=== PATIENT | female | born 1980 | race Caucasian/White ===

== ENCOUNTER → 2016-10-23 | Outpatient (REF) | payer OTHER | LOC: M LAB REF 19:37 | PROVIDERS: ATTEND Physician Assistant | DX: J02.9 Acute pharyngitis, unspecified (principal) ==

== ENCOUNTER → 2017-03-23 | Outpatient (REF) | payer OTHER | LOC: M LAB REF 16:12 | PROVIDERS: ATTEND Physician Assistant | DX: J02.9 Acute pharyngitis, unspecified (principal) ==

== ENCOUNTER → 2017-04-10 | Outpatient (REF) | payer OTHER | LOC: M SFHCWAGY 15:50 | PROVIDERS: ATTEND Family Medicine | DX: Z12.4 Encounter for screening for malignant neoplasm of cervix (principal) ==

== ENCOUNTER → 2019-03-16 | Outpatient (REF) | payer OTHER ==
[2019-03-16 18:18] LABS: HEMATOCRIT 40.1 % (36.0-47.0); HEMOGLOBIN 12.3 g/dl (12.0-15.5); MEAN CORPUSCULAR HEMOGLOBIN 23.7 pg (27.0-33.0); MEAN CORPUSCULAR HGB CONC 30.7 g/dl (32.0-36.5); MEAN CORPUSCULAR VOLUME 77.1 fl (80.0-96.0); PLATELET COUNT, AUTOMATED 290 10^3/uL (150-450); WHITE BLOOD COUNT 9.8 10^3/uL (4.0-10.0)
[2019-03-16 18:52] LABS: ALBUMIN 3.6 GM/DL (3.2-5.2); ALT/SGPT 18 U/L (12-78); BILIRUBIN,TOTAL 0.6 MG/DL (0.2-1.0); BLOOD UREA NITROGEN 12 MG/DL (7-18); CALCIUM LEVEL 8.8 MG/DL (8.5-10.1); CARBON DIOXIDE LEVEL 28 MEQ/L (21-32); CHLORIDE LEVEL 103 MEQ/L (98-107); CHOLESTEROL LEVEL 220 MG/DL (<200); CHOLESTEROL RISK RATIO 5.789 (<5); CREATININE FOR GFR 0.85 MG/DL (0.55-1.30); FREE T4 0.99 NG/DL (0.76-1.46); GLOMERULAR FILTRATION RATE > 60.0 (>60); GLUCOSE, FASTING 92 MG/DL (70-100); HDL CHOLESTEROL 38 MG/DL (>40); LDL CHOLESTEROL 145 MG/DL (<100); NON-HDL-C 182 MG/DL; POTASSIUM SERUM 3.9 MEQ/L (3.5-5.1); SODIUM LEVEL 137 MEQ/L (136-145); THYROID STIMULATING HORMONE 0.733 uIU/ML (0.358-3.740); TOTAL PROTEIN 7.1 GM/DL (6.4-8.2); TRIGLYCERIDES LEVEL 187 MG/DL (<150)
== END ==
LOC: M SFHCWAGY 14:57
PROVIDERS: ATTEND Nurse Practitioner Women's Health
DX: Z00.00 Encounter for general adult medical examination without abnormal findings (principal); N94.6 Dysmenorrhea, unspecified; N92.0 Excessive and frequent menstruation with regular cycle

== ENCOUNTER → 2019-03-23 | Outpatient (CLI) | payer OTHER ==
--- NOTE | 2019-03-24 04:13 | REP ---
Clinical: Abnormal menstrual cycles. Menorrhagia. Technique: Transabdominal pelvic ultrasound followed by transvaginal examination for better evaluation of the endometrium and adnexa with color Doppler evaluation of the ovaries. Findings: Bladder is under distended and currently measures 5.7 x 5.1 x 3.8 cm. Heterogeneous anteverted uterus measures 8.1 x 4.9 x 5.9 cm with a anterior intramural fibroid measuring 2.1 cm maximal diameter and fundal fibroid measuring 5.6 cm maximal diameter with internal echogenicity suggesting calcification. Endometrial complex measures 7 mm thickness. Ovaries are normal in vascularity without torsion. Right ovary measures 4.6 x 3.6 x 4.3 cm (RI 0.64) including hypoechoic and isoechoic structures measuring 2.5 cm and 2.9 cm suggesting complex cysts and possible endometrioma. Left ovary measures 3.9 x 2.0 x 3.6 cm (RI 0.34) and includes 1.9 cm complex cyst / follicle. No pelvic free fluid or discrete adnexal mass lesion. Impression: 1. Heterogeneous anteverted uterus with at least two fibroids as noted above. 2. Complex structures within the bilateral ovaries (right greater than left) likely representing complex physiologic cysts/follicles with possible endometrioma in the right ovary. Consider follow-up examination in 4-6 weeks to evaluate for resolution. Electronically Signed by Adam Storm MD 03/24/2019 04:05 A
== END ==
LOC: M RAD 08:30
PROVIDERS: ATTEND Nurse Practitioner Women's Health
DX: N94.6 Dysmenorrhea, unspecified (principal); N92.0 Excessive and frequent menstruation with regular cycle

== ENCOUNTER → 2020-07-17 | Outpatient (REF) | payer BC | LOC: M SFHCWAGY 09:17 | PROVIDERS: ATTEND Nurse Practitioner Women's Health | DX: Z12.4 Encounter for screening for malignant neoplasm of cervix (principal) | CPT/HCPCS: 87624; G0123 ==

== ENCOUNTER → 2020-08-01 | Outpatient (CLI) | payer BC ==
--- NOTE | 2020-08-01 17:55 | REP ---
INDICATION: D25.9 UTERINE LEIOMYOMA,Z87.42 HX OVARIAN CA,N93.9 AUB. COMPARISON: 03/23/2019. TECHNIQUE: Transabdominal and transvaginal scanning performed. FINDINGS: Uterine dimensions are 8.8 x 5.9 x 5.9 cm. Endometrial echo is 10 mm in AP dimension and centrally placed. Anterior fibroid measures 1.9 x 1.8 x 2.3 cm. A pedunculated fundal fibroid measures 4.9 x 4.1 x 3.9 cm. Both of these are similar in size compared to the prior study. The bladder measures 5.9 x 2.9cm. The right ovary has dimensions of 5.2 x 4.3 x 4.4 cm. The left ovary dimensions are 3.9 x 2.3 x 2.7 cm. Blood flow is seen in each ovary with duplex Doppler evaluation, with no torsion. A complex right ovarian cyst demonstrates diffuse internal echoes and somewhat nodular appearing thickened septations. This measures 3.8 x 3.8 x 3.5 cm. Another cystic structures seen in the right ovary with low level echoes 1.7 x 1.0 x 1.3 cm. There is a somewhat exophytic peripheral hypoechoic nodular structure of the left ovary 2.4 x 2.1 x 2.2 cm. This could represent a complex cyst or dominant follicle. No free fluid is seen in the cul-de-sac. IMPRESSION: Stable uterine fibroids. Complex right ovarian cyst contains internal echoes and somewhat suspicious internal nodular appearing thickened septations with maximum diameter 3.8 cm. Blood flow is seen within these nodular appearing septations. Consider surgical resection. At the very least further evaluation should be made with MRI pelvis with and without contrast or follow-up ultrasound in 6-12 weeks. <Electronically signed by Shane Castro > 08/01/20 [id number]
== END ==
LOC: M WHC 14:58
PROVIDERS: ATTEND Nurse Practitioner Women's Health
DX: N83.291 Other ovarian cyst, right side (principal); Z87.42 Personal history of other diseases of the female genital tract; D25.9 Leiomyoma of uterus, unspecified; N93.9 Abnormal uterine and vaginal bleeding, unspecified

== ENCOUNTER → 2020-08-16 | Outpatient (REF) | payer BC | LOC: M PLALAB 17:58 | PROVIDERS: ATTEND Obstetrics & Gynecology | DX: N83.209 Unspecified ovarian cyst, unspecified side (principal); Z53.8 Procedure and treatment not carried out for other reasons ==

== ENCOUNTER → 2020-08-17 | Outpatient (REF) | payer BC ==
[2020-08-17 18:34] LABS: HCG, SERUM QUANTITATIVE < 1.0 MIU/ML
[2020-08-17 19:10] LABS: CA 125 35.2 U/ML (<30.2)
[2020-08-21 16:17] LABS: HE4 49.3 pmol/L (0.0-63.6); INHIBIN A ULTRASENSITIVE 12.6 pg/mL (.); INHIBIN B 16.3 pg/mL (.)
== END ==
LOC: M PLALAB 14:42
PROVIDERS: ATTEND Obstetrics & Gynecology
DX: N83.209 Unspecified ovarian cyst, unspecified side (principal)

== ENCOUNTER → 2020-09-01 | Outpatient (CLI) | payer BC ==
[~2020-09-01] MED LIST: CITA20TA6 PO; METO1TAB33 PO
== END ==
LOC: M LABSMTC 08:16
PROVIDERS: ATTEND Anesthesiology
DX: Z01.812 Encounter for preprocedural laboratory examination (principal); Z11.52 Encounter for screening for COVID-19

== ENCOUNTER 2020-09-06 08:04 | Day surgery (SDC) | payer BC ==
[~2020-09-06] VITALS: Ht 157.5 cm; Wt 110.2 kg
[~2020-09-06 08:04] MED LIST changes: +CLINDAMYCIN 900 MG in IV 1 EA IV ONE; +GENTAMICIN 160 MG in D5W 50 ML IV ONE; +LIDOCAINE 1% MDV 20ML VIAL SQ PRN; +LIDOCAINE 2% INJ 100 MG/5 ML SYRINGE As Ordered ONE; +LR 1,000 ML IV ONE; +MIDAZOLAM INJ 2MG/2ML VIAL (J2250 PER 1MG) As Ordered ONE; +ROCURONIUM BROMIDE 50 MG/5 ML VIAL As Ordered ONE; +dexameTHASONE 4 MG/ML 1ML VIAL (J1100 PER 1MG) As Ordered ONE; +fentaNYL 250 MCG/5 ML INJECTION (J3010) As Ordered ONE; +propofoL 200 MG/20 ML VIAL As Ordered ONE
[2020-09-06 08:49] LABS: HEMATOCRIT 40.3 % (36.0-47.0); HEMOGLOBIN 12.4 g/dl (12.0-15.5); MEAN CORPUSCULAR HEMOGLOBIN 23.5 pg (27.0-33.0); MEAN CORPUSCULAR HGB CONC 30.8 g/dl (32.0-36.5); MEAN CORPUSCULAR VOLUME 76.3 fl (80.0-96.0); PLATELET COUNT, AUTOMATED 308 10^3/uL (150-450); RED BLOOD COUNT 5.28 10^6/uL (4.00-5.40); WHITE BLOOD COUNT 8.2 10^3/uL (4.0-10.0)
[2020-09-06 09:14] LABS: HCG, SERUM QUALITATIVE NEGATIVE (NEGATIVE)
[2020-09-06] MEDS ORDERED: LR 1,000 ML IV SCH ×2 (10:20→13:30)
[2020-09-06] MEDS ORDERED: PERCOCET 5MG/325MG TAB PO PRN ×2 (10:20)
[2020-09-06] MEDS ORDERED: ONDANSETRON 4MG/2ML VIAL IV PRN ×2 (10:20→13:30)
[2020-09-06] MEDS ORDERED: BUPIVACAINE HCL 0.25% 30ML VIAL As Ordered ONE (10:39)
[2020-09-06] MEDS ORDERED: ROCURONIUM BROMIDE 50 MG/5 ML VIAL As Ordered ONE (11:01)
[2020-09-06] MEDS ORDERED: ACETAMINOPHEN 1000MG 100ML IV BTL (OFIRMEV) (J0131 PER 10MG) As Ordered ONE (11:36)
[2020-09-06] MEDS ORDERED: SUGAMMADEX SODIUM 500 MG/5 ML VIAL (BRIDION) As Ordered ONE (11:52)
[2020-09-06] MEDS ORDERED: fentaNYL 100 MCG/2 ML INJECTION (J3010) IV PRN (13:30)
[2020-09-06] MEDS ORDERED: oxyCODONE 5MG TAB PO PRN (13:30)
[2020-09-06] MEDS ORDERED: DOK1CAP7 PO (13:35)
[2020-09-06] MEDS ORDERED: PERCOCET PO (13:35)
[2020-09-06] MEDS ORDERED: IBUP80TA PO (13:35)
[2020-09-06 14:30] VITALS: BP 116/56
--- NOTE | 2020-09-06 16:22 | RO ---
OPERATIVE NOTE DATE OF OPERATION: 09/06/2020 STAFF SURGEON: Kathrine Winslow M.D. CAN OPERATOR: Samy Krause MD CLINICAL SERVICE: Gynecology. INDICATIONS FOR PROCEDURE: Yolande is a 40-year-old G0 who presented for abnormal uterine bleeding and was found to have a complex right ovarian cyst on imaging. She also had a fibroid uterus. In our discussions regarding management, she noted that she had undesired fertility. She had never had any children, but she and her were in accord that they did not want to have children in the future. We discussed all options for management of her bleeding, as well as the right ovarian cyst and after discussing all options, she desired hysterectomy for definitive management, as well as right ovarian excision versus right ovary cystectomy. Endometrial sampling had been attempted in the office but unsuccessful related to cervical stenosis. However, endometrial lining was fairly normal on the ultrasound. PREOPERATIVE DIAGNOSES: 1. Abnormal uterine bleeding-leiomyoma. 2. Complex right ovarian cyst. 3. Undesired fertility. 4. Obesity. 5. Hypertension. POSTOPERATIVE DIAGNOSES: 1. Abnormal uterine bleeding-leiomyoma. 2. Complex right ovarian cyst. 3. Undesired fertility. 4. Obesity. 5. Hypertension. 6. Endometriosis involving bilateral ovaries 7. Cervical polyp. PROCEDURES PERFORMED: 1. Cervical polypectomy. 2. Laparoscopic myomectomy. 3. Laparoscopic bilateral salpingectomy 4. Dilation and curettage (D&C). FINDINGS: Laparoscopic findings revealed normal appearing fallopian tubes, normal appearing appendix, gallbladder, and liver edge. The bilateral ovaries were fixed with adhesions in the pelvis and the uterus had a very large pedunculated fibroid at the fundus. It also had what appears to be a cervical fibroid and a few other small fibroids on the anterior aspect. There was a cervical polyp as well. INFECTION CLASSIFICATION: 2. ESTIMATED BLOOD LOSS: 50 mL. IV FLUIDS: 2000 mL of lactated ringers. URINE OUTPUT: 200 mL of clear yellow urine via Boudreaux catheter that was removed at the end of the case. ANESTHESIA: General endotracheal. DESCRIPTION OF PROCEDURE: The patient was taken to the operating room after obtaining informed consent. General endotracheal anesthesia was established. She was placed in the low lithotomy position. She was prepped and draped in the usual sterile fashion. A Boudreaux catheter was placed. [place] speculum was placed in the vagina and visualization of the cervix was obtained. The anterior lip of the cervix was grasped with a single-tooth tenaculum. A fairly large cervical polyp was removed using a long Marie twisting it along the stalk and that was sent off to pathology. At that point, the cervix was sequentially dilated using Augusto dilators. A Riptide IOare uterine manipulator was placed through the cervix into the uterus. Tenaculum was removed with hemostasis observed and bivalve speculum was removed. The patient was taken out of Trendelenburg position and a 5 mm incision was made in the infraumbilical fold beneath the subcutaneous tissue after anesthetizing with 0.25% Marcaine. Marie clamp was used to spread the subcutaneous tissue. Lower abdominal wall was manually grabbed and lifted up with the aide of towel clamps. Optiview trocar was placed at a 90-degree angle. The laparoscope was advanced through the port and intraabdominal placement was confirmed, without injury noted below the point of entry. Continuous flow carbon dioxide began to establish a pneumoperitoneum at 15 mmHg pressure. Two more incisions were made 5 mm in size for 5 mm trocars that were placed under direct visualization; one in the right lower quadrant and one in the left lower quadrant. Pelvic and abdominal survey was conducted beginning at the anterior cul-de-sac and anterior portion of the uterus, which noted the cervical-appearing fibroid anteriorly. The right and left fallopian tubes were normal in appearance, as well as the round ligaments and broad ligaments; but bilaterally, the ovaries were thickly adhesed in the pelvis, consistent with endometriosis. There was no obvious cyst on the anterior portion of the right ovary; so any cyst would be deeper in the stroma or on the other side of the ovary that was adhesed to the pelvic wall. Posterior cul-de-sac was overall normal in appearance. Survey of the upper abdomen revealed a normal appearing appendix, normal appearing liver edge and gallbladder. There was a very large fibroid on the fundal aspect of the uterus pedunculated in nature and there were a couple other scattered 1 cm sized fibroids on the surface of the uterus as well. At that point, given our inspection of the pelvis, given the overall normal appearance of bilateral ovaries other than the fact that they were thickly adhesed in the pelvis overlying the ureters and adjacent to the uterus (snug up against it), which would have made dissection of the uterine vessels difficult in a hysterectomy; Dr. Krause and I conferred and decided the best route to take would be removing the large pedunculated fibroid and that, hopefully in conjunction with removal of the cervical polyp, would help treat her menorrhagia. We also determined to do a D&C, which was done at the end of the case. We felt it was in the best interest of the patient to forgo the hysterectomy at the time of this surgery with plan to vocational rehabilitation counselor the patient further if she strongly desired definitive management of her bleeding in the future to perform a robotic hysterectomy with thorough specific counseling regarding possibility of injury to the ureters needing stenting, etc. We then proceeded with the myomectomy using a LigaSure device, coagulating and cutting the fibroid at the point at which it met the uterus along the pedicle, and we removed that to the side and used cautery at a few small areas of bleeding. We also placed Marcos along the pedicle line from the stalk of the fibroid on the uterus and noted hemostasis there. We then used the LigaSure device to remove the fallopian tubes and excised them from the fimbriated portion all the way to the portion that met the uterus and put those off to the side in the pelvis. Finally, we then made the 5 mm port in the infraumbilical fold into a 10 mm port so that we could then introduce an Endo Catch bag into the pelvis, removed the fallopian tubes, placed the fibroid into the Endo Catch bag, and pulled that up through the subcutaneous layers to the surface. At that point, we proceeded to core the fibroid little by little, keeping it contained within the Endo Catch bag the entire time. Eventually, all of it was removed up out of the abdomen. At that point, we then closed the fascia of the 10 mm port, which we had incised further along the fascia so that we could remove the fibroid up and out of it. Since we had extended that incision, we made sure to do a strong closure using 0-Vicryl suture in a running stitch; making sure that there were no defects left afterwards. Then, we reintroduced the camera into the abdomen and investigated further to ensure that there was no bleeding on the uterus itself where the fibroid had been removed from. We did some irrigation and suctioning. Since there was hemostasis, we then terminated that portion of the procedure. All instruments were removed out of the abdomen, as well as the trocars after releasing the pneumoperitoneum. The incisions were reapproximated with 4-0 Monocryl and Dermabond. At this point, attention was turned to the vagina and Dr. Krause removed the VCare uterine manipulator and replaced the speculum and tenaculum, and performed a D&C to ensure tissue diagnosis of the endometrium. Once that was finished, he removed the tenaculum with hemostasis noted and removed the speculum. Sponge, lap, and needle counts were all correct x2. The patient tolerated the procedure well. She was awakened from general anesthesia and was taken to the recovery room in stable condition. ANNA MARIE
[2020-09-06] MEDS ORDERED: KETOROLAC 30 MG/ML 1ML VIAL IV SCH (19:00)
[2020-09-06] MEDS ORDERED: DOCUSATE SODIUM 100MG CAPSULE PO SCH (21:00)
[2020-09-07] MEDS ORDERED: IBUPROFEN 800 MG TAB PO SCH (15:00)
== END 2020-09-06 15:40 | disposition home or self-care (01) ==
LOC: M SDC 08:04
PROVIDERS: ATTEND Obstetrics & Gynecology
DX: N84.1 Polyp of cervix uteri (principal); N85.00 Endometrial hyperplasia, unspecified; N83.201 Unspecified ovarian cyst, right side; D25.9 Leiomyoma of uterus, unspecified; Z30.2 Encounter for sterilization; E66.9 Obesity, unspecified; I10 Essential (primary) hypertension; F41.9 Anxiety disorder, unspecified; R06.83 Snoring; Z79.899 Other long term (current) drug therapy; F17.210 Nicotine dependence, cigarettes, uncomplicated; Z88.0 Allergy status to penicillin
CPT/HCPCS: 36415; 58120; 58545; 58661; 84703; 85027; 86850; 86900; 86901; 88302; 88305; J0131; J1100; J1580; J2250; J3010

== ENCOUNTER → 2020-09-19 | Outpatient (CLI) | payer BC ==
[~2020-09-19] MED LIST changes: -CLINDAMYCIN 900 MG in IV 1 EA IV ONE; +DOK1CAP7 PO; -GENTAMICIN 160 MG in D5W 50 ML IV ONE; +IBUP80TA PO; -LIDOCAINE 1% MDV 20ML VIAL SQ PRN; -LIDOCAINE 2% INJ 100 MG/5 ML SYRINGE As Ordered ONE; -LR 1,000 ML IV ONE; -MIDAZOLAM INJ 2MG/2ML VIAL (J2250 PER 1MG) As Ordered ONE; +PERCOCET PO; -ROCURONIUM BROMIDE 50 MG/5 ML VIAL As Ordered ONE; -dexameTHASONE 4 MG/ML 1ML VIAL (J1100 PER 1MG) As Ordered ONE; -fentaNYL 250 MCG/5 ML INJECTION (J3010) As Ordered ONE; -propofoL 200 MG/20 ML VIAL As Ordered ONE
== END ==
LOC: M WHC 10:34
PROVIDERS: ATTEND Obstetrics & Gynecology
DX: N83.209 Unspecified ovarian cyst, unspecified side (principal); Z53.8 Procedure and treatment not carried out for other reasons

== ENCOUNTER → 2020-12-20 | Outpatient (CLI) | payer BC ==
[~2020-12-20] MED LIST changes: +DOK1CAP4 PO; -DOK1CAP7 PO
== END ==
LOC: M WHC 14:29
PROVIDERS: ATTEND Obstetrics & Gynecology
DX: Z53.20 Procedure and treatment not carried out because of patient's decision for unspecified reasons (principal)

== ENCOUNTER 2021-08-19 07:10 | Emergency (ER) | payer BC ==
[~2021-08-19] VITALS: Ht 157.5 cm; Wt 120.5 kg
[2021-08-19] MEDS ORDERED: CELE20TA PO (07:20)
[2021-08-19] MEDS ORDERED: diphenhydrAMINE 25MG CAP PO ONE (07:35)
[2021-08-19] MEDS ORDERED: MEDR4PAK PO (07:36)
[2021-08-19 07:54] VITALS: BP 127/89
== END 2021-08-19 07:55 | disposition home or self-care (01) ==
LOC: M ED 07:10
DX: R21 Rash and other nonspecific skin eruption (principal); I10 Essential (primary) hypertension; Z88.0 Allergy status to penicillin; Z79.899 Other long term (current) drug therapy

== ENCOUNTER → 2022-03-10 | Outpatient (REF) | payer BC ==
[~2022-03-10] MED LIST changes: +CELE20TA PO; +MEDR4PAK PO
== END ==
LOC: M WUC 21:29
PROVIDERS: ATTEND Student in an Organized Health Care Education/Training Program
DX: R30.0 Dysuria (principal)

== ENCOUNTER → 2022-11-19 | Outpatient (CLI) | payer BC | LOC: M SLEEP HO 11-17 11:41 | PROVIDERS: ATTEND Nurse Practitioner Adult Health | DX: G47.10 Hypersomnia, unspecified (principal) ==

== ENCOUNTER → 2023-01-06 | Outpatient (CLI) | payer BC ==
[2023-01-06 17:11] LABS: BASO # 0.1 10^3/uL (0.0-0.2); BASO % 0.6 % (0.0-1.0); EOS # 0.4 10^3/uL (0.0-0.5); EOS % 4.6 % (0.0-3.0); HEMATOCRIT 37.9 % (36.0-47.0); HEMOGLOBIN 11.3 g/dl (12.0-15.5); LYMPH # 1.9 10^3/uL (1.5-5.0); LYMPH % 23.3 % (24.0-44.0); MEAN CORPUSCULAR HEMOGLOBIN 22.8 pg (27.0-33.0); MEAN CORPUSCULAR HGB CONC 29.8 g/dl (32.0-36.5); MEAN CORPUSCULAR VOLUME 76.6 fl (80.0-96.0); MONO # 0.7 10^3/uL (0.0-0.8); MONO % 8.4 % (2.0-8.0); NEUTROPHILS # 5.1 10^3/uL (1.5-8.5); NEUTROPHILS % 62.9 % (36.0-66.0); PLATELET COUNT, AUTOMATED 267 10^3/uL (150-450); RED BLOOD COUNT 4.95 10^6/uL (4.00-5.40); WHITE BLOOD COUNT 8.1 10^3/uL (4.0-10.0)
[2023-01-06 17:36] LABS: HEMOGLOBIN A1c 6.3 % (4.0-6.0)
[2023-01-06 17:43] LABS: ALBUMIN 3.7 G/DL (3.2-5.2); ALKALINE PHOSPHATASE 93 U/L (46-116); ALT/SGPT 20 U/L (7.0-40); AST/SGOT 9 U/L (<34); BILIRUBIN,TOTAL 0.3 MG/DL (0.3-1.2); BLOOD UREA NITROGEN 13 MG/DL (9-23); CALCIUM LEVEL 8.9 MG/DL (8.5-10.1); CARBON DIOXIDE LEVEL 28 MMOL/L (20-31); CHLORIDE LEVEL 106 MMOL/L (98-107); CHOLESTEROL LEVEL 177 MG/DL (<200); CHOLESTEROL RISK RATIO 4.82 (<5); CREATININE FOR GFR 0.65 MG/DL (0.55-1.30); FREE T4 0.85 NG/DL (0.89-1.76); GLOMERULAR FILTRATION RATE > 60.0 (>58); GLUCOSE, FASTING 102 MG/DL (60-100); HDL CHOLESTEROL 36.7 MG/DL (>40); LDL CHOLESTEROL 99.7 MG/DL (<100); NON-HDL-C 140.3 MG/DL; POTASSIUM SERUM 4.2 MMOL/L (3.5-5.1); SODIUM LEVEL 137 MMOL/L (136-145); TOTAL 25(OH) VITAMIN D 17.4 NG/ML (20.0-100.0); TOTAL PROTEIN 7.3 G/DL (5.7-8.2); TRIGLYCERIDES LEVEL 203 MG/DL (<150)
== END ==
LOC: M WUC 13:45
PROVIDERS: ATTEND Physician Assistant
DX: Z13.29 Encounter for screening for other suspected endocrine disorder (principal); Z13.220 Encounter for screening for lipoid disorders; E55.9 Vitamin D deficiency, unspecified

== ENCOUNTER → 2023-08-13 | Outpatient (CLI) | payer OTHER ==
[2023-08-13 17:21] LABS: BASO # 0.1 10^3/uL (0.0-0.2); BASO % 0.7 % (0.0-1.0); EOS # 0.1 10^3/uL (0.0-0.5); EOS % 1.6 % (0.0-3.0); HEMATOCRIT 40.6 % (36.0-47.0); HEMOGLOBIN 12.3 g/dl (12.0-15.5); LYMPH # 1.8 10^3/uL (1.5-5.0); LYMPH % 22.4 % (24.0-44.0); MEAN CORPUSCULAR HEMOGLOBIN 23.4 pg (27.0-33.0); MEAN CORPUSCULAR HGB CONC 30.3 g/dl (32.0-36.5); MEAN CORPUSCULAR VOLUME 77.2 fl (80.0-96.0); MONO # 0.6 10^3/uL (0.0-0.8); MONO % 7.1 % (2.0-8.0); NEUTROPHILS # 5.5 10^3/uL (1.5-8.5); PLATELET COUNT, AUTOMATED 314 10^3/uL (150-450); RED BLOOD COUNT 5.26 10^6/uL (4.00-5.40); WHITE BLOOD COUNT 8.1 10^3/uL (4.0-10.0)
[2023-08-13 17:46] LABS: ALBUMIN 3.5 G/DL (3.2-5.2); ALKALINE PHOSPHATASE 104 U/L (46-116); ALT/SGPT 21 U/L (7.0-40); AST/SGOT 17 U/L (<34); BILIRUBIN,TOTAL 0.4 MG/DL (0.3-1.2); BLOOD UREA NITROGEN 18 MG/DL (9-23); CALCIUM LEVEL 9.4 MG/DL (8.5-10.1); CARBON DIOXIDE LEVEL 24 MMOL/L (20-31); CHLORIDE LEVEL 106 MMOL/L (98-107); CREATININE FOR GFR 0.63 MG/DL (0.55-1.30); FERRITIN 6.8 NG/ML (7.3-270.7); FOLATE 14.6 NG/ML (>5.4); FREE T4 0.89 NG/DL (0.89-1.76); GLOMERULAR FILTRATION RATE > 60.0 (>58); GLUCOSE, FASTING 147 MG/DL (60-100); IRON (FE) 27 UG/DL (50-170); PERCENT SATURATION 6.8 % (13.2-45.0); POTASSIUM SERUM 3.9 MMOL/L (3.5-5.1); SODIUM LEVEL 134 MMOL/L (136-145); THYROID STIMULATING HORMONE 1.147 uIU/ML (0.55-4.78); TOTAL IRON BINDING CAPACITY 398 UG/DL (250-425)
[2023-08-13 17:48] LABS: VITAMIN B12 LEVEL 501 PG/ML (211-911)
== END ==
LOC: M WUC 11:01
PROVIDERS: ATTEND Physician Assistant
DX: R73.01 Impaired fasting glucose (principal); D64.9 Anemia, unspecified; E55.9 Vitamin D deficiency, unspecified

== ENCOUNTER → 2024-03-09 | Outpatient (CLI) | payer OTHER ==
[2024-03-09 11:28] LABS: BASO # 0.1 10^3/uL (0.0-0.2); BASO % 0.7 % (0.0-1.0); EOS # 0.4 10^3/uL (0.0-0.5); EOS % 4.6 % (0.0-3.0); HEMATOCRIT 40.1 % (36.0-47.0); LYMPH # 1.8 10^3/uL (1.5-5.0); LYMPH % 22.4 % (24.0-44.0); MEAN CORPUSCULAR HGB CONC 32.4 g/dl (32.0-36.5); MEAN CORPUSCULAR VOLUME 77.1 fl (80.0-96.0); MONO # 0.6 10^3/uL (0.0-0.8); MONO % 7.4 % (2.0-8.0); NEUTROPHILS # 5.3 10^3/uL (1.5-8.5); NEUTROPHILS % 64.5 % (36.0-66.0); PLATELET COUNT, AUTOMATED 256 10^3/uL (150-450); WHITE BLOOD COUNT 8.1 10^3/uL (4.0-10.0)
[2024-03-09 11:56] LABS: LIPASE 37 U/L (12-53)
[2024-03-09 11:58] LABS: IRON (FE) 48 UG/DL (50-170); PERCENT SATURATION 12.4 % (13.2-45.0); TOTAL IRON BINDING CAPACITY 388 UG/DL (250-425)
[2024-03-09 11:59] LABS: ALBUMIN 3.6 G/DL (3.2-5.2); ALKALINE PHOSPHATASE 101 U/L (35-104); ALT/SGPT 29 U/L (7.0-40); AST/SGOT 18 U/L (<34); BILIRUBIN,DIRECT < 0.1 MG/DL (<0.4); BILIRUBIN,TOTAL 0.3 MG/DL (0.3-1.2); BLOOD UREA NITROGEN 17 MG/DL (9-23); CALCIUM LEVEL 9.6 MG/DL (8.5-10.1); CARBON DIOXIDE LEVEL 23 MMOL/L (20-31); CHLORIDE LEVEL 107 MMOL/L (98-107); GLOMERULAR FILTRATION RATE > 60.0 (>58); GLUCOSE, FASTING 122 MG/DL (60-100); POTASSIUM SERUM 4.3 MMOL/L (3.5-5.1); SODIUM LEVEL 137 MMOL/L (136-145); TOTAL PROTEIN 7.2 G/DL (5.7-8.2)
[2024-03-09 12:03] LABS: FERRITIN 11.1 NG/ML (7.3-270.7)
[2024-03-09 12:04] LABS: TOTAL 25(OH) VITAMIN D 19.8 NG/ML (20.0-100.0)
== END ==
LOC: M RAD 09:45
PROVIDERS: ATTEND Physician Assistant
DX: M54.50 Low back pain, unspecified (principal); R31.9 Hematuria, unspecified; R93.89 Abnormal findings on diagnostic imaging of other specified body structures